=== PATIENT | male | born 1995 ===

== ENCOUNTER 2020-02-18 08:49 | Day surgery (SDC) | payer OTHER | END 2020-02-18 17:05 | disposition home or self-care (01) | LOC: CIR.AMB 08:49 | PROVIDERS: ATTEND Colon & Rectal Surgery | DX: K60.3 Anal fistula (principal); Z20.828 Contact with and (suspected) exposure to other viral communicable diseases ==

== ENCOUNTER 2020-06-04 05:45 | Day surgery (SDC) | payer OTHER | END 2020-06-04 15:40 | disposition home or self-care (01) | LOC: CIR.AMB 05:45 | PROVIDERS: ATTEND Colon & Rectal Surgery | DX: K60.3 Anal fistula (principal); Z20.822 Contact with and (suspected) exposure to COVID-19 ==